=== PATIENT | female | born 1985 | race Two or more races ===

== ENCOUNTER 2018-07-19 11:02 | Emergency (ER) | payer BC, SELFPAY ==
[2018-07-19 11:03] VITALS: BP 128/78; PULSE 94; RESP 18; TEMP 37.1; O2SAT 98; BMI 30.9
--- NOTE | 2018-07-19 11:15 | US_ITS ---
STUDY: FIRST TRIMESTER OBSTETRICAL ULTRASOUND REASON FOR EXAM: Female, 32 years old. Vaginal bleeding. LMP: June 02, 2018 TECHNIQUE: Transvaginal TECHNICAL QUALITY: Adequate. PRIOR ULTRASOUND: None. FINDINGS: There is visualization of a single gestational sac in a normal intrauterine position. The mean sac diameter (MSD) measures 1.17 cm, indicating an estimated gestational age (EGA) of 5 weeks, 6 days. The gestational sac appears elongated in shape. There is trace fluid adjacent to the gestational sac. There is no demonstrated yolk sac. The placenta is non-visualized. The crown-rump length (CRL) measures 4.5 mm, indicating an estimated gestational age (EGA) of 6 weeks, 2 days. There is demonstrated cardiac activity with a heart rate of 58 bpm. The estimated gestation age (EGA) by LMP is 6 weeks, 5 days. The estimated date of delivery (ERNESTO) by LMP is March 09, 2019. The estimated gestation age (EGA) by US is 6 weeks, 1 days. The estimated date of delivery (ERNESTO) by US is March 13, 2018. The uterus measures 6.9 x 5.1 x 4.0 centimeters. There is no demonstrated uterine fibroid. The cervix is closed. The right ovary measures 4.0 x 2.6 x 2.5 cm. There is no right ovarian cyst. There is no visualized right adnexal mass or complex lesion. The left ovary measures 2.9 x 2.5 x 2.0 cm. There is no left ovarian cyst. There is no visualized left adnexal mass or complex lesion. There is a moderate amount of fluid in the cul de sac. US/Transvaginal w/Preg US IMPRESSION: Early intrauterine with an estimated gestational age by ultrasound of 6 weeks and 1 day. The heart rate is low and the gestational sac has an atypical appearance, consider short interval follow-up ultrasound and corresponding beta hCG levels. Moderate amount of free fluid. Electronically Signed: Jenn Antonio MD at 14:46 EDT Tel , Service support ,
[2018-07-19 11:36] LABS: Absolute Lymphocyte Count 2.77 X10^3/ul (0.83-4.51); Absolute Neutrophil Count 8.6 X10^3/uL (2.0-7.7); Basophil# 0.03 X10^3/uL; Basophil% 0.2 % (0-1); Eosinophil# 0.12 X10^3/uL; Hematocrit 41.8 % (37-47); Hemoglobin 14.8 g/dl (12.0-15.0); Lymphocyte # 2.77 X10^3/ul (4.0); Mean Corp Hgb Conc 35.4 g/gl (32-36); Mean Corpuscular Hgb 31.4 pg (27.0-32.0); Mean Corpuscular Volume 88.7 fL (81-99); Mean Platelet Vol. 9.9 fl (6.2-12.0); Monocyte% 7.9 % (0-10); Neutrophil # 8.64 X10^3/uL (2.7-7.7); Neutrophil % 68.5 % (47-70); Platelet Count 304 K/mm3 (150-450); RBC Distribution Width CV 12.8 % (11.6-14.6); Red Blood Count 4.71 M/mm3 (4.2-5.4); White Blood Count 12.6 K/mm3 (4.4-11.0)
[2018-07-19 11:37] LABS: POSITIVE COUNT NO; POSITIVE DIFFERENTIAL NO; POSITIVE MORPHOLOGY NO
[2018-07-19 12:07] LABS: hCG Titer Quant., Serum 15771 mIU/mL (<9 non-preg)
--- NOTE | 2018-07-19 14:59 | ED.DCSUM_ITS ---
- ER Visit Summary Date of Service: 07/19/18 Chief Complaint: [Vaginal bleeding] History of Present Illness: The patient is a 32 F [presents the emergency department with complaint of vaginal bleeding that started initially 2 days ago. Patient states that she initially just would have some spotting that she noted when she would go to the restroom and wiped. Patient is 6 weeks . Patient states that this morning she started passing more blood and presents for evaluation. Patient complains of just minimal lower abdominal discomfort. Patient tells me that she had a quantitative hCG 2 days ago that showed a quant over 9000. The quant she had 2 days prior was 5000. Patient is . Last m enstrual period was 06/02/2018.] Physical Examination: [HEENT-PERRLA, EOMI. Cranial nerves II through XII grossly intact. TMs clear. Mucous membranes moist. No adenopathy. Cardiovascular-regular rate and rhythm without murmur or ectopy Lungs-clear to auscultation, chest wall stable without crepitus or subcu emphysema Abdomen-normoactive bowel sounds, soft. Patient has some mild suprapubic tenderness on palpation. There are no masses palpated. No rebound, rigidity, or perineal signs. Extremities-intact ?4, normal range of motion, normal pulses, atraumatic] Test Results: [CBC with differential obtained showed a white count of 12.6, hemoglobin 14.8, hematocrit 42, platelets 304. Quantitative hCG was 15,771. Type and Rh was O+. Pelvic ultrasound obtained showed an intrauterine gestation measuring 6 weeks 1 day. heart rate was slow at 58. Recommendation was serial hCGs and close ultrasound follow-up.] Emergency Department Course and Treatment: [Case was discussed with Dr. Trinity Bae who was covering for Dr. Saundra Weinstein. I was asked to have the patient follow-up with their office tomorrow. Patient is considered a threatened .] Treatment Plan: [Follow-up with Dr. Saundra Weinstein tomorrow.] Disposition: [Discharged to home in stable condition. Patient advised to return if persistent or heavy bleeding. Patient to return if going through more than 1 pad an hour for 4 consecutive hours or if she should have increasing pain, lightheadedness, or condition should worsen anyway.] Impression: [Threatened first trimester ] This note was generated with Dragon dictation software. It may contain incorrect words, spelling, and punctuation that were not noted in review of the chart prior to signing ED Disposition - Plan for ED Patient: Chief Complaint: Vag Bld, Preg Referrals: Ayana Bruce MD [Primary Care Provider] -
--- NOTE | 2018-07-19 15:00 | ED.DEP ---
ED Disposition - Plan for ED Patient: Chief Complaint: Vag Bld, Preg Instructions: ED Miscarriage Poss Referrals: Ayana Bruce MD [Primary Care Provider] - Saundra Weinstein MD [STAFF PHYSICIAN] - 1 Day
[2018-07-19 15:12] VITALS: PULSE 80; RESP 17; O2SAT 99
== END 2018-07-19 15:13 | disposition home or self-care (01) ==
LOC: ED 11:28
PROVIDERS: Emergency Provider Emergency Medicine; Family Provider Internal Medicine; PCP Internal Medicine
DX: O20.0 Threatened abortion (principal); Z3A.01 Less than 8 weeks gestation of pregnancy
CPT/HCPCS: 76817; 84702; 85025; 86900; 99283; A4216

== ENCOUNTER 2019-01-09 13:56 | Emergency (ER) | payer BC, SELFPAY ==
[2019-01-09 13:57] VITALS: BP 118/69; PULSE 77; RESP 16; TEMP 36.1; O2SAT 96; BMI 30.5
--- NOTE | 2019-01-09 14:29 | US_ITS ---
STUDY: FIRST TRIMESTER OBSTETRICAL ULTRASOUND REASON FOR EXAM: Female, 33 years old. Bleeding, LMP: 11/20/2018 TECHNIQUE: Transvaginal TECHNICAL QUALITY: Adequate. PRIOR ULTRASOUND: None. FINDINGS: There is visualization of a single gestational sac in a in the lower uterine segment. The gestational sac is teardrop in shape. There is no demonstrated embryo ( pole). The uterus measures 9.4 x 4.8 x 4.8 cm. There is no demonstrated uterine fibroid. The cervix is closed. The right ovary measures 3.4 x 2.5 x 1.9 cm. Complex cyst in the right ovary measures 1.7 cm (isoechoic). There is no visualized right adnexal mass or complex lesion. The left ovary measures 2.3 x 1.8 x 1.1. There is no left ovarian cyst. There is no visualized left adnexal mass or complex lesion. There is no fluid in the cul de sac. US/Transvaginal w/Preg US IMPRESSION: 1. Abnormal appearing gestational sac WITHOUT embryonic pole/yolk sac. Nonviable likely. Ectopic cannot be excluded. Serologic and sonographic follow-up recommended. 2. Probable involuting right corpus luteum cyst. Electronically Signed: Urban Francis MD at 16:14 EDT , Service support ,
--- NOTE | 2019-01-09 14:32 | ED.DCSUM_ITS ---
- ER Visit Summary Date of Service: 01/09/19 Chief Complaint: Vaginal bleeding in History of Present Illness: The patient is a 33 F presenting with vaginal bleeding in . Patient states she is 7 weeks . She has her first ultrasound scheduled for Friday. She is Ab1. She denies cramping. She states bleeding is heavier than a period. She denies lightheadedness or syncope. She denies other complaints. Physical Examination: Vitals are stable. Patient is afebrile. Alert no acute distress. HEENT exam is unremarkable. Neck is supple. Lungs are clear and equal bilaterally. Heart is regular rate and rhythm. Abdomen is soft nontender nondistended. Pelvic: Large clots were cleared. No active bleeding once the clots cleared. Extremities are unremarkable. Skin is warm and dry. No focal neurologic deficit. Remainder of exam is unremarkable. Emergency Department Course and Treatment: [place] [address]. Blood type O+. Pelvic ultrasound shows abnormal appearing gestational sac WITHOUT embryonic pole/yolk sac. Nonviable likely. Ectopic cannot be excluded. Discussed with Dr. Correia. Patient will follow up closely in the office on Friday. She is advised to return to the ED for worsening complaints. Disposition: Discharge home Impression: Threatened miscarriage This note was generated with [employer] dictation software. It may contain incorrect words, spelling, and punctuation that were not noted in review of the chart prior to signing ED Disposition - Plan for ED Patient: Instructions: ED Miscarriage Poss Referrals: Ayana Bruce MD [Primary Care Provider] - Saundra Weinstein MD [STAFF PHYSICIAN] -
--- NOTE | 2019-01-09 16:54 | ED.RN ---
assisted dr cantu with pelvic. pt with copious amounts of bleeding, large clots evacuated. pt complete bed change. clean clothing clean gown,yuri care completed. pad and mesh underware supplied
--- NOTE | 2019-01-09 17:05 | ED.DEP ---
ED Disposition - Plan for ED Patient: Instructions: ED Miscarriage Poss Referrals: Ayana Bruce MD [Primary Care Provider] - Saundra Weinstein MD [STAFF PHYSICIAN] -
[2019-01-09 17:08] VITALS: RESP 18; O2SAT 97
== END 2019-01-09 17:45 | disposition home or self-care (01) ==
PROVIDERS: Emergency Provider Emergency Medicine; Family Provider Internal Medicine; PCP Internal Medicine
DX: O20.0 Threatened abortion (principal); Z3A.01 Less than 8 weeks gestation of pregnancy
CPT/HCPCS: 76817; 84702; 86900; 96374; 99283; A4216; J2405